=== PATIENT | male | born 1980 | race African-American/Black ===

== ENCOUNTER → 2019-08-29 | Day surgery (SDC) | payer OTHER ==
[2019-08-22 11:19] LABS: ANION GAP 11.7 mmol/L (8-16); BLOOD UREA NITROGEN 15 mg/dL (7-26); BUN/CREATININE RATIO 11 (6-25); CALCIUM 9.2 mg/dL (8.4-10.2); CARBON DIOXIDE 28 mmol/L (22-29); CHLORIDE 105 mmol/L (98-107); CREATININE, SERUM 1.37 mg/dL (0.72-1.25); EST GLOMERULAR FILTRATION RATE > 60 ML/MIN (60-); GLUCOSE 101 mg/dL (74-118); POTASSIUM 4.7 mmol/L (3.5-5.1); SODIUM 140 mmol/L (136-145)
[~2019-08-29] MED LIST: ACETAMINOPHEN 1000 MG/100 ML 100 ML IV ONE; BACITRACIN 50,000 UNIT VIAL ONE; CEFTRIAXONE SOD 1 GM VIAL ONE; CLOMIPHENE CITR50 MG PO; CRESTOR10 MG PO; DEXAMETHASONE SOD PHOS INJ 4 MG/ML VIAL ONE; DEXTROSE 5% 250ML 250 ML IV ONE; FENTANYL CITRATE/PF 100MCG/2 ML INJ ONE; HYDROCODONE/APAP 7.5MG-325MG 1 EA TAB ONE; INSULIN PUMP IV; LEVOTHYROXINE75 MCG PO; LIDOCAINE HCL 1% LOCAL INJ 20 ML VIAL ONE; LIDOCAINE HCL 2% LOCAL INJ 5 ML SDV VIAL INJ ONE; LISINOPRIL2.5 MG PO; MIDAZOLAM HCL 2 MG/2 ML VIAL ONE; NOVOLOG; ONDANSETRON HCL INJ 2MG/ML 2ML 2 MG/ML VIAL ONE; OZEMPIC0.25 MG/0. SQ; PROPOFOL IV EMULSION 10 MG/ML 20 ML VIAL ONE; SEVOFLURANE INHAL SOLN 250 ML PEN BTL ONE; novol SQ; provigil PO
[2019-08-29 15:25] VITALS: BP 116/59
--- NOTE | 2019-08-30 11:21 | Operative Report ---
DATE OF PROCEDURE: 08/29/2019 SURGEON: Hosea Jeffrey MD PREOPERATIVE DIAGNOSIS: Organic erectile dysfunction. POSTOPERATIVE DIAGNOSIS: Organic erectile dysfunction. OPERATIVE PROCEDURE PERFORMED: Placement of inflatable penile prosthesis. ANESTHESIA: General anesthesia. ESTIMATED BLOOD LOSS: Minimal. INDICATIONS: Mr. Gary Chou is a 38-year-old black man with a long history of diabetes mellitus and hypertension with resulting organic erectile dysfunction. This has failed all conservative measures. He now presents for definitive surgical management of this problem. PROCEDURE IN DETAIL: The patient was brought into the operating room, placed in supine position. After administration of general anesthesia, he was prepped and draped in the usual sterile fashion. A Redding catheter was placed and the balloon inflated. This was kept clamped for the remainder of the procedure after the bladder was drained. A penoscrotal incision was made sharply and dissection was carried out to the cavernosa bodies on both sides. After stay sutures of PDS were placed bilaterally the corporal bodies were incised with the Bovie. Mild bleeding was noted on both sides. These were then dilated proximally and distally 1st with the Metzenbaum and then with dilators. The DMI was then used to measure the corporal bodies and these measured 27 cm on both sides. A decision was made to proceed with a 21 cm CX cylinder with a two 6 cm RTEs on both sides. This was placed without difficulty using a Basilio needle to pull the distal end of the prosthetic to the glans penis. The prosthesis was noted to fit nicely in the corporal bodies. The previously placed stay sutures were then closed in a horizontal fashion to close off the cavernosa bodies. A subdartos pocket was created and the pump was placed to the right of midline. An inguinal incision was made on the right side sharply and dissection was carried out to the layers of the fascia. The tissues were copiously infiltrated with lidocaine prior to the incision. An incision was then made horizontally on the fascia and a subrectus pocket was formed. A 65 mL reservoir was placed in this location and filled with saline in the standard fashion. The tubing was allowed to exit from stab wound inferior to the fascial incision. The fascial incision was then closed using running 2-0 Vicryl suture. The tubing from the pump was then brought up into the right groin and the pump and reservoir were connected using the quick connect method. The device was cycled on the field and noted to function adequately. After copious irrigation of all wounds with antibiotic solution, the wounds were then closed in layers. The skin being closed with a running subcuticular stitch bilaterally. The wounds were then cleaned and dried and covered with Mastisol, Steri-Strips and a sterile Tegaderm dressing. Anesthesia was reversed and the patient was transferred to a bed and taken to the postanesthesia care unit in good condition. Of note, the needle and instrument count were correct at the conclusion of the case. MD ANA Guillen/MODL /[id number]
== END | disposition home or self-care (01) ==
LOC: OR 07:49
PROVIDERS: ATTEND Urology
DX: N52.8 Other male erectile dysfunction (principal); E29.1 Testicular hypofunction; E03.9 Hypothyroidism, unspecified; I10 Essential (primary) hypertension; E11.9 Type 2 diabetes mellitus without complications; Z01.810 Encounter for preprocedural cardiovascular examination; Z01.812 Encounter for preprocedural laboratory examination; Z79.4 Long term (current) use of insulin; Z79.84 Long term (current) use of oral hypoglycemic drugs; Z68.35 Body mass index [BMI] 35.0-35.9, adult
CPT/HCPCS: 36415 ×2; 54405; 80048; 82948; 93005; C1813 ×2; J0131; J0696; J1100; J2001 ×2; J2250; J2405; J2704; J3010; J7070